=== PATIENT | male | born 1970 | race Two or more races ===

== ENCOUNTER 2017-03-24 12:36 | Emergency (ER) | payer SELFPAY ==
[~2017-03-24] VITALS: Ht 182.9 cm; Wt 105.0 kg
[2017-03-24] MEDS ORDERED: KETOROLAC 30MG/ML VIAL IV ONE (16:15)
[2017-03-24 16:45] LABS: BASOPHILS % 0.8 % (0.0-2.0); EOSINOPHILS % 3.8 % (0.0-5.0); HEMATOCRIT. 44.7 % (42.0-52.0); HEMOGLOBIN. 15.2 g/dL (14.0-18.0); LYMPHOCYTES % 26.9 % (20.0-50.0); MEAN CORPUSCULAR HEMOGLOBIN 31.6 pg (28.0-32.0); MEAN PLATELET VOLUME 9.1 fl (7.4-10.4); MONOCYTES % 7.9 % (2.0-8.0); NEUTROPHILS % 60.6 % (40.0-76.0); PLATELET 236 x1000/uL (130-400); RED BLOOD CELL COUNT 4.81 mill/uL (4.7-6.1)
[2017-03-24 16:45] LABS: CLARITY URINE CLEAR (CLEAR); COLOR URINE YELLOW (YELLOW); KETONES URINE NEGATIVE (NEGATIVE); LEUKOCYTE ESTERASE URINE NEGATIVE (NEGATIVE); NITRITE URINE NEGATIVE (NEGATIVE); OCCULT BLOOD URINE NEGATIVE (NEGATIVE); PH URINE 7.5 (4.5-8.0); PROTEIN URINE NEGATIVE (NEGATIVE); SPECIFIC GRAVITY URINE 1.015 (1.005-1.030); UROBILINOGEN URINE 0.2 E.U./dL (0.2-1.0)
[2017-03-24 16:51] LABS: CHLORIDE 104 mEq/L (98-107)
[2017-03-24 16:53] LABS: INR 1.1; PARTIAL THROMBOPLASTIN TIME 25.8 sec (23.4-31.0); PROTHROMBIN TIME 11.4 sec (9.4-11.6)
[2017-03-24 16:54] LABS: CARBON DIOXIDE 30 mEq/L (21-32)
[2017-03-24] MEDS ORDERED: IOHEXOL-300 100 ML BOTTLE ONE (17:30)
[2017-03-24] MEDS ORDERED: PIPERACILLIN/TAZ 3.375G PREMIX 50 ML IV NR (18:28)
[2017-03-24] MEDS ORDERED: PIPERACILLIN/TAZOBACTAM 3.375GM/50ML PREMIX IV ONE (18:30)
[2017-03-24] MEDS ORDERED: VANCOMYCIN 1 G PREMIX 200 ML IV SCH (18:30)
[2017-03-24 19:02] VITALS: BP 133/64
== END 2017-03-24 19:07 | disposition left against medical advice (07) ==
LOC: ER 12:36
DX: S30.1XXA Contusion of abdominal wall, initial encounter (principal); L02.211 Cutaneous abscess of abdominal wall; K65.1 Peritoneal abscess; F17.200 Nicotine dependence, unspecified, uncomplicated; F12.10 Cannabis abuse, uncomplicated; X58.XXXA Exposure to other specified factors, initial encounter; Y93.89 Activity, other specified; Y92.89 Other specified places as the place of occurrence of the external cause; Y99.8 Other external cause status
CPT/HCPCS: 36415; 74177; 80053; 81003; 83690; 85025; 85610; 85730; 96374; 99285; J1885; Q9967